=== PATIENT | female | born 1965 ===

== ENCOUNTER 2023-12-20 08:29 | Day surgery (SDC) | payer BC ==
[~2023-12-20] VITALS: Ht 180.3 cm; Wt 77.1 kg
[~2023-12-20 08:29] MED LIST: LR 1,000 ML IV SCH; Ondansetron 4 MG/2 ML VIAL IV PRN
[2023-12-20] MEDS ORDERED: COMPLETE MULTI1 TAB PO (09:08)
[2023-12-20] MEDS ORDERED: VITAMIN C500 MG PO (09:09)
[2023-12-20] MEDS ORDERED: PROFE180 MG PO (09:11)
[2023-12-20] MEDS ORDERED: ZYRTEC5 MG PO (09:11)
[2023-12-20 09:17] VITALS: BP 100/62; PULSE 74; TEMP 97.2
[2023-12-20 10:25] VITALS: BP 99/66; PULSE 71; TEMP 98.2
--- NOTE | 2023-12-20 10:25 | NUR ---
PATIENT RETURNED TO BAY 1 IN ENDOSCOPY. SHE IS ALERT AND ORIENTED. VS WNL. AT BEDSIDE. CALL LIGHT WITHIN REACH. PATIENT REQUESTS DIET PEPSI AND A MUFFIN. WAITING FOR PHYSICIAN TO SPEAK WITH PATIENT. WILL CONTINUE TO MONITOR.
[2023-12-20 10:40] VITALS: BP 105/63; PULSE 64
--- NOTE | 2023-12-20 10:40 | NUR ---
PATIENT IS DOING WELL. SHE DENIES ANY PAIN OR NAUSEA AFTER EATING AND DRINKING. IV DISCONTINUED. PHYSICIAN JUST IN TO SPEAK WITH PATIENT. WILL CONTINUE TO MONITOR.
[2023-12-20 10:55] VITALS: BP 93/57; PULSE 71
--- NOTE | 2023-12-20 10:55 | NUR ---
PATIENT IS READY FOR DISCHARGE. LAST SET OF VITALS WNL. DISCHARGE INSTRUCTIONS REVIEWED WITH PATIENT AND HER . WILL DISCHARGE ONCE PATIENT IS DRESSED.
== END 2023-12-20 11:05 | disposition home or self-care (01) ==
LOC: SDCO 08:29
DX: Z12.11 Encounter for screening for malignant neoplasm of colon (principal); D12.0 Benign neoplasm of cecum
CPT/HCPCS: J2704